=== PATIENT | male | born 2000 | race Caucasian/White ===

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

== ENCOUNTER 2021-09-15 17:14 | Emergency (ER) | payer OTHER, SELFPAY ==
[2021-09-15 17:15] VITALS: BP 123/82; PULSE 76; RESP 16; TEMP 36.7; O2SAT 100; BMI 23.1
--- NOTE | 2021-09-15 17:45 | RAD_ITS ---
STUDY: X-RAY - UNILATERAL RIBS ( RIGHT ) WITH CHEST REASON FOR EXAM: Male, 20 years old. Trauma. Fell onto a joist. Anterior right side chest pain. TECHNIQUE - RIBS: 4 view(s) of the ribs. TECHNIQUE - CHEST: Single PA view of the chest. COMPARISON: None. FINDINGS - RIBS: Normal visualized ribs without a demonstrated fracture. FINDINGS - CHEST: The lungs are clear and expanded. There is no demonstrated pleural abnormality. Normal size heart. Normal mediastinum and daxa. Normal visualized pulmonary arteries. Normal visualized aortic arch and descending thoracic aorta. Normal visualized thoracic spine. Normal visualized ribs, clavicles, and shoulders. There is no demonstrated abnormality of the visualized soft tissue structures of the upper abdomen. RAD/Ribs Uni Min 3V w/PA Chest IMPRESSION: RIBS: Normal x-ray examination of the ribs. CHEST: Normal x-ray examination of the chest. Electronically Signed: Ulises Sepulveda DO at 18:19 EDT ,
--- NOTE | 2021-09-15 17:53 | EX.ED.GENINJ ---
HPI History of Present Illness Chief Complaint: Chest Other Narrative Narrative: 20-year-old male who denies significant past medical history presents with fall and injury to right ribs. This happened within the last hour. He states he was working on building a home when he slipped on a piece of plywood and fell on the joist. He hit his right chest and now has pain with movement and breathing. While he sustained abrasions and bruising he has pain above that area. He denies other injury. He did not hit his head. No loss of consciousness. He believes that his immunizations may be up-to-date as he received some as a child but his father states not all. PFSH PFS Medical History no medical history Home Medications doxycycline hyclate 100 mg capsule 100 mg PO BID 10 days #20 caps 09/12/21 [Rx Last Taken Unknown] Allergy/AdvReac Type Severity Reaction Status Date / Time Penicillins Allergy Rash Verified 09/15/21 17:18 Surgical History no surgical history Social History Smoking Status: Never smoker ROS ROS ED ROS Narrative Constitutional: No fever, no chills. HEENT: No sore throat. No neck pain. No loss of vision. No rhinorrhea. Cardiovascular: Right-sided anterior rib pain/chest pain. No palpitations. No pedal edema. Respiratory: No cough, no shortness of breath. Abdominal: No abdominal pain. No nausea. No vomiting. Genitourinary: No dysuria. No hematuria. Musculoskeletal: No myalgias. No arthralgias. Neurologic: No headaches. No dizziness. No lightheadedness. Skin: No rash. No change in color. Psychiatric: No depression. No anxiety. EXAM Physical Exam Narrative Exam Narrative: Afebrile. Vital signs noted. HEENT: Normocephalic. Atraumatic. PERRL, EOMI. Neck soft and supple. No point tenderness or step off. Cardiovascular: Regular rate and rhythm. No murmurs, rubs, or gallops appreciated. Respiratory: No tachypnea. Lungs clear to auscultation bilaterally. Positive tenderness to palpation right anterior ribs. Noted abrasion/bruising no active bleeding. No crepitance. Breath sounds equal bilaterally. Gastrointestinal: Abdomen soft, nontender, with normoactive bowel sounds. No rebound or guarding. Neurological: Awake. Alert. Nonfocal, nonlateralizing. Skin: No rash. Normal color. No pallor. Musculoskeletal: No pedal edema. Full range of motion extremities. Const Vital Signs: 09/15/21 17:15 Temperature 98.0 F Temperature Source Temporal Pulse Rate 76 Respiratory Rate 16 Blood Pressure 123/82 H Blood Pressure Mean 95 Pulse Ox 100 Oxygen Delivery Method Room Air MDM MDM MDM Narrative Medical decision making narrative: Pulse ox is 100% on room air without evidence of hypoxia. Patient was administered ibuprofen 800 mg orally for analgesia. X-rays were obtained of the right ribs. They were interpreted by myself. I see no evidence of fracture, no pneumothorax. Patient will be discharged to apply ice to the affected area and take [id number] analgesics as needed. Follow-up primary care. Return instructions were reviewed. Disposition is discharged home in stable condition. Radiography Diagnostic Testing: Clinical Impression(s) from Imaging Studies Ribs w/Chest X-Ray 09/15/21 17:45 IMPRESSION: RIBS: Normal x-ray examination of the ribs. CHEST: Normal x-ray examination of the chest. Electronically Signed: Ulises Sepulveda DO at 18:19 EDT Reading Location ID and State: [address] [place] [address] Tel [phone], Service support , Discharge Plan Triage Chief Complaint: Chest Other ED Provider: Nelson Ortiz Dx/Rx/DC Orders Clinical Impression: Fall, Contusion of rib on right side Instructions: ED Chest Wall Contusion, ED Contusion, Rib Prescriptions: No Action doxycycline hyclate 100 mg capsule 100 mg PO BID 10 Days Qty: 20 0RF Primary Care Provider: Care Physician,No Primary Referrals: NOT,DEFINED [NON-STAFF] - Disposition Disposition: Home, Self Care
== END 2021-09-15 18:33 | disposition home or self-care (01) ==
PROVIDERS: Emergency Provider Emergency Medicine; Visit Provider Emergency Medicine
DX: S20.211A Contusion of right front wall of thorax, initial encounter (principal); W01.10XA Fall on same level from slipping, tripping and stumbling with subsequent striking against unspecified object, initial encounter; Y93.89 Activity, other specified; Y99.8 Other external cause status; Y92.89 Other specified places as the place of occurrence of the external cause
CPT/HCPCS: 71101; 99282